=== PATIENT | female | born 1970 ===

== ENCOUNTER 2016-04-18 19:07 | Emergency (ER) | payer OTHER ==
[2016-04-18] MEDS ORDERED: KETOROLAC TROMETHAMINE 60 MG/2 ML VIAL ONE (19:59)
[2016-04-18] MEDS ORDERED: HYDROCODONE/ACETAMINOPHEN 5/325MG TABLET ONE (19:59)
--- NOTE | 2016-04-18 20:11 | RAD ---
ELBOW -RIGHT 3-4 VIEWS HISTORY: Injury. COMPARISONS: None. FINDINGS: Multiple views of the right elbow were performed demonstrating normal bony mineralization. There is evidence of an oblique intra-articular fracture involving the lateral aspect of the radial head with mild displacement. The alignment remains appropriate. There is evidence of an elbow joint effusion with displacement of both the anterior and posterior distal humeral fat pads. IMPRESSION: 1. A mildly displaced oblique intra-articular fracture of the lateral portion of the radial head with an associated elbow joint effusion.
--- NOTE | 2016-04-18 20:12 | RAD ---
FOREARM RIGHT HISTORY: Fall. COMPARISONS: None. FINDINGS: 2 views of the right forearm were obtained demonstrating evidence of an oblique intra-articular fracture involving the proximal radial head. The distal radius and the ulna appear to be intact. No focal soft tissue abnormalities are visualized. IMPRESSION: 1. An obliquely oriented intra-articular fracture involving the right radial head.
== END 2016-04-18 20:37 | disposition home or self-care (01) ==
LOC: ED 19:07
DX: S52.124A Nondisplaced fracture of head of right radius, initial encounter for closed fracture (principal); W01.0XXA Fall on same level from slipping, tripping and stumbling without subsequent striking against object, initial encounter; Y93.9 Activity, unspecified; Y92.9 Unspecified place or not applicable
CPT/HCPCS: 73080; 73090; 99283 ×2; 29105; 96372; J1885; A9270